=== PATIENT | female | born 1940 | race Caucasian/White ===

== ENCOUNTER 2016-10-29 08:00 | Day surgery (SDC) | payer MEDICARE ==
[~2016-10-29 08:00] MED LIST: RINGERS SOLUTION,LACTATED 1,000 ML IV PRN
--- OUTSIDE RECORDS SUMMARY | 2016-10-29 08:05 | XMS REPORT | Continuity of Care Document ---
:1940 Author Organization [facility] [place] [address] Care Team Providers Name Role Phone Francois Webb Primary Care Provider [phone] Source Comments This disclosure is being made pursuant to the [employer] program and maynot contain all information available regarding this patient.[facility] Active Allergies and Adverse Reactions Allergen Noted Date Severity Reactions Comments Sulfa Antibiotics 12/07/2014 High Anaphylaxis Tigan 12/07/2014 Other (See Comments) "almost " Current Medications Be aware that medications may not be up to date as of this document. Alwaysverify current medications with the patient. Prescription Sig. Disp. Refills Start Date End Date Status traMADol (ULTRAM) 50 MG Take 50-100 mg by Active tablet mouth every 6 (six) hours as needed for Pain. Max 4 per day tapentadol HCl (NUCYNTA) Take 50-100 mg by Active 50 MG tablet mouth every 6 (six) hours as needed for Pain. Max 600 mg per day prochlorperazine Place 25 mg Active (COMPAZINE) 25 MG rectally every 12 suppository (twelve) hours as needed for Nausea. gemfibrozil (LOPID) 600 MG Take 600 mg by Active tablet mouth 2 (two) times daily before meals. pregabalin (LYRICA) 75 MG Take 75 mg by Active capsule mouth 2 (two) times daily. fluoxetine (PROZAC) 40 MG Take 40 mg by Active capsule mouth 2 (two) times daily. ALPRAZolam (XANAX) 0.25 MG Take 0.25 mg by Active tablet mouth daily. cloNIDine (CATAPRES) 0.1 Take 0.1 mg by Active MG tablet mouth daily. HYDROcodone-acetaminophen Take 1 tablet by Active (NORCO) 5-325 MG per mouth every 6 tablet (six) hours as needed for Pain. enalapril-hydrochlorothiaz Take 1 tablet by Active rhonda (VASERETIC) 10-25 MG mouth 2 (two) per tablet times daily. aspirin 325 MG tablet Take 325 mg by Active mouth daily. Calcium 500 MG CHEW Chew 1 tablet by Active mouth daily. Multiple Vitamins-Minerals Take 1 tablet by Active (ONE-A-DAY 50 PLUS PO) mouth daily. albuterol (PROVENTIL Inhale 2 puffs 1 each 0 12/08/2014 Active HFA;VENTOLIN HFA) 108 (90 into the lungs BASE) MCG/ACT inhaler every 6 (six) hours as needed for Wheezing. Active Problems Problem Noted Date HTN (hypertension) 12/07/2014 Fibromyalgia 12/07/2014 Hx-TIA (transient ischemic attack) 12/07/2014 H/O bilateral breast reduction surgery 12/07/2014 Resolved Problems Problem Noted Date Resolved Date Respiratory failure with hypoxia (HCC) 12/07/2014 12/09/2014 Hypokalemia 12/07/2014 12/09/2014 Social History Tobacco Use Types Packs/Day Years Used Date Former Smoker 0.5 5 Quit: 04/27/1966 Smokeless Tobacco: Never Used Alcohol Use Drinks/Week oz/Week Comments No Last Filed Vital Signs Vital Sign Reading Time Taken Blood Pressure 131/60 12/08/2014 7:53 AM CDT Pulse 57 12/08/2014 7:53 AM CDT Temperature 36.6 C (97.9 F) 12/08/2014 7:53 AM CDT Respiratory Rate 16 12/08/2014 7:53 AM CDT Height 1.524 m (5') 12/07/2014 10:49 PM CDT Weight 76.8 kg (169 lb 5 oz) 12/07/2014 10:49 PM CDT Body Mass Index 33.07 12/07/2014 10:49 PM CDT Oxygen Saturation 99% 12/08/2014 7:53 AM CDT Plan of Care Health Maintenance Due Date Last Done Comments Tetanus/Pertussis (1 - Tdap) 1961 Colonoscopy 1992 Mammogram 1992 Well Adult Visit 1992 Zoster Vaccine 60+ 2002 Bone Density 10/26/2007 Pneumococcal Low/Medium Risk 65+ (1 of 2 - PCV13) 10/26/2007 Influenza Immunization (#1) 2015 Results from Last 3 Months Not on file Insurance Payer Benefit Plan / Subscriber ID Type Phone Address Group [facility] [employer] [id number] [facility] [phone] [address] [id number] [place] [address] Home: [id number] [phone] [place] [id number]
[2016-10-29] MEDS ORDERED: RINGERS SOLUTION,LACTATED 1,000 ML IV ONE (08:30)
[2016-10-29] MEDS ORDERED: RINGERS SOLUTION,LACTATED 1,000 ML IV PRN (09:16)
[2016-10-29 10:13] VITALS: BP 136/64
--- NOTE | 2016-10-29 13:19 | OR ---
Operative Report - Dictated Report Narrative: OPERATIVE REPORT DATE OF OPERATION: 10/29/2016 PREOPERATIVE DIAGNOSIS: No recent dedicated colon studies. Irregular bowels. POSTOPERATIVE DIAGNOSIS: Diverticulosis OPERATION: Colonoscopy SURGEON: Gini Hampton MD ANESTHESIA: RANDY Smith CRNA INDICATIONS FOR PROCEDURE: The patient is a 75-year-old female referred by Dr. Webb. Her last colonoscopy was in 2004. She has alternating hard and loose stools FINDINGS: Diverticulosis NARRATIVE OF PROCEDURE: The patient was identified in the holding area, and prior to the administration of anesthetic, a multidisciplinary timeout was observed. With the patient in the left lateral position and after the administration of intravenous sedation, the perineum was inspected. There was no evidence of pilonidal disease or skin breakdown. The external appearance of the anus was normal. Sphincter tone was good. The flexible fiberoptic colonoscope was inserted into the rectum which was insufflated with air. The rectal mucosa and submucosal vascular pattern appeared normal, the prep was seen to be complete. The scope was advanced through a tortuous sigmoid colon, which contained numerous non-impacted noninflamed diverticular openings. The scope was advanced up the descending colon, and around the splenic flexure where the triangular haustral architecture of the transverse colon was seen. The scope was advanced across the transverse colon, around the hepatic flexure to the cecum, where the confluence of tenia and the ileocecal valve were identified. The mucosa at this level appeared normal. The scope was then slowly withdrawn in a circular fashion so that all aspects of colonic mucosa were inspected. The colon was normal in course and caliber. The haustral architecture appeared well preserved throughout with no evidence of external compression. The mucosa and submucosal vascular pattern appeared normal, specifically there was no gross evidence to suggest colitis or inflammatory bowel disease and no AV malformations were seen. The diverticulosis was moderate in degree and confined primarily to the sigmoid colon. No polyps were encountered. The scope was gradually withdrawn to the level of the rectum. As much insufflated air as possible was removed. The scope was withdrawn from the patient and the procedure terminated. The patient tolerated the anesthetic and procedure well without complication and was transferred back to the ambulatory surgery area awake and in stable condition. The patient remained stable throughout a period of postoperative observation. She denied abdominal discomfort, was able to tolerate by mouth intake, and was up without assistance. I shared the operative findings with the patient and she was given copies of the photographs which appear in the medical record. She was discharged home with instructions not to engage in hazardous activity today , but may resume normal activity tomorrow, and advance diet as tolerated. She is to continue those medications as listed in the history and physical exam. A pamphlet on diverticular disease was reviewed with her and given to her. A trial of Benefiber or equivalent was suggested. RECOMMENDATION: Colon surveillance in 10 years depending upon symptoms or findings. Reviewed and electronically signed
== END 2016-10-29 08:01 | disposition home or self-care (01) ==
LOC: AMB 08:00
PROVIDERS: ATTEND Surgery
PROC: 0DJD8ZZ Inspection of Lower Intestinal Tract, Via Natural or Artificial Opening Endoscopic (ICD-10-PCS; principal; 2016-10-29 08:45)
DX: Z12.11 Encounter for screening for malignant neoplasm of colon (principal); K57.30 Diverticulosis of large intestine without perforation or abscess without bleeding; I10 Essential (primary) hypertension; E78.5 Hyperlipidemia, unspecified; K21.9 Gastro-esophageal reflux disease without esophagitis; Z87.891 Personal history of nicotine dependence; Z68.34 Body mass index [BMI] 34.0-34.9, adult

== ENCOUNTER 2019-09-08 15:20 | Inpatient (IN) ==
[2019-09-08] MEDS ORDERED: MORPHINE SULFATE 2 MG/ML DISP.SYRIN IV ONE ×3 (15:40→19:28)
[2019-09-08] MEDS ORDERED: ONDANSETRON HCL/PF 2 MG/ML VIAL IV ONE ×2 (15:40→17:14)
--- NOTE | 2019-09-08 15:53 | ERNOTE ---
Abdominal HPI - Narrative Date of Service: 09/08/19 - General Chief Complaint: Abdominal Pain Time Seen by Provider: 09/08/19 15:36 Source: patient Exam Limitations: no limitations - Immun/Allergies/Home Medications Immunizatons: IMMUNIZATION HX Immunizations Up to Date Yes History of Influenza Vaccine Yes Hx Pneumococcal Vaccination Yes Allergies/Adverse Reactions: Allergies estrogens, conjugated [From Premarin] Allergy (Severe, Verified 09/08/19 15:29) Stiff neck, throat swelling Sulfa (Sulfonamide Antibiotics) Allergy (Mild, Verified 09/08/19 15:29) REDNESS, N/V trimethobenzamide [From Tigan] Adverse Reaction (Severe, Verified 09/08/19 15:29) Anaphylaxis gabapentin Adverse Reaction (Mild, Verified 09/08/19 15:29) ROTS TEETH Home Medications: HOME MEDICATIONS Gemfibrozil [Lopid] 600 mg PO BID 10/15/16 [Last Taken 12/08/17] nystatin 100,000 unit/gram topical cream 1 applic TP BID #30 g 11/23/17 [Last Taken Unknown] meloxicam 15 mg tablet 15 mg PO DAILY #30 tab 12/29/17 [Last Taken Unknown] amlodipine 5 mg tablet 5 mg PO DAILY #90 tab 03/10/18 [Last Taken 04/05/18 08:00] clonidine HCl 0.1 mg tablet See Rx Instructions .ROUTE .COMPLEX #180 tablet 11/09/18 [Last Taken Unknown] fluoxetine 40 mg capsule 40 mg PO BID PRN #180 cap 11/09/18 [Last Taken Unknown] amitriptyline 25 mg tablet 25 mg PO HS PRN #90 tab 11/11/18 [Last Taken Unknown] pseudoephedrine-guaifenesin ER 60 mg-600 mg tablet,extend release 12hr 1 tab PO BID PRN #10 tab 02/09/19 [Last Taken Unknown] buspirone 10 mg tablet 10 mg PO BID #180 tab 04/14/19 [Last Taken Unknown] alprazolam 0.25 mg tablet 0.25 mg PO ONCE PRN #30 tab 07/07/19 [Last Taken Unknown] hydrocodone 5 mg-acetaminophen 325 mg tablet 1 tab PO DAILY PRN #30 tab 08/31/19 [Last Taken Unknown] - Pain Score Pain Score #1 Pain Score: 8 Abdominal Pain Onset Location: RLQ Pain Radiation: flank - History of Present Illness Narrative: The patient is a 78 year old female who presents for RLQ pain which has been present for 2 days. There are associated symptoms of nausea, chills and fever. The patient reports pain to RLQ, 8/10. There are no alleviating factors. There are aggravating factors of activity. Previous treatments have included: Tylenol and Aleve without improvement. The past medical history includes: IBS, fibromyalgia, GERD, HTN, HLD and TIA. The social history is positive for former smoker. The patient has had no known ill contacts. Review of Systems - Review of Systems Constitutional: Present: fever, chills, fatigue EYE: Present: no symptoms reported ENT: Absent: ear pain, nasal drainage, sore throat Respiratory: Present: no symptoms reported, shortness of breath. Absent: cough Cardiology: Present: no symptoms reported. Absent: chest pain Gastrointestinal/Abdominal: Present: nausea, abdominal pain. Absent: vomiting, diarrhea Genitourinary: Present: no symptoms reported. Absent: dysuria Musculoskeletal: Present: back pain Skin: Present: no symptoms reported. Absent: rash Neurological: Present: no symptoms reported All Other Systems: All systems neg except as marked Medical History (Last Reviewed 09/08/19 @ 15:43 by REMY Jean) Chronic pain syndrome (Chronic) TIA (transient ischemic attack) Fibromyalgia Onset Date: Unknown GERD (gastroesophageal reflux disease) Onset Date: ~05/13/16 Hyperlipidemia Onset Date: Unknown Hypertension Onset Date: Unknown Inflammatory bowel disease (ulcerative colitis) Onset Date: Unknown History of ectopic Onset Date: ~1960 Skin cancer Onset Date: Unknown Nose Surgical History: Surgical History (Last Reviewed 09/08/19 @ 15:43 by REMY Jean) History of phacoemulsification of cataract of left eye with intraocular lens implantation History of salpingectomy from tubal . other tube out at time of hysterectomy H/O bilateral breast reduction surgery Onset Date: 12/05/14 H/O colonoscopy Onset Date: 10/29/16 10/02/04 Nusjohanna-internal hemorrhoids 10/29/16 Memo - diverticulitis, recheck 10 years H/O nasal septoplasty Onset Date: 08/10/03 Estrellita History of cholecystectomy Onset Date: Unknown Dr. Flores - open History of esophagogastroduodenoscopy (EGD) Onset Date: 10/02/04 10/02/04 Jorge-mild gastritis History of hysterectomy Onset Date: ~1965 Dr. Sherita DOMINGUEZ History of tonsillectomy Onset Date: ~1976 S/P epidural steroid injection Onset Date: 02/06/06 01/30/06 02/06/06 L2-3, L3-4 S/P rotator cuff repair Onset Date: 05/27/07 Sohail- right Status post biopsy of thyroid gland Onset Date: ~2017 Henrich-benign Family History: Family History (Last Reviewed 09/08/19 @ 15:43 by REMY Jean) Father , age 55-stomach ca Stomach cancer Mother , age 77-lung ca History of stroke Hypertension Arthritis Diverticulosis Lung cancer Sister , age 64-lung ca History of stroke Hypertension Lung cancer Social History: (Last Reviewed 09/08/19 @ 15:43 by REMY Jean) Social History: adopted: No detention: No Marital status: lives independently: No current occupational status: retired Highest education level completed: high school graduate Service: No Tobacco: Smoking Status: Former smoker Alcohol: alcohol intake: former Substance Use: substance use type: does not use Dietary Habits: caffeine: Yes Type: carbonated beverages Physical Exam - Physical Exam General Appearance: Present: wd/wn, alert, moderate distress Head Exam: Present: normal inspection Eye Exam: Normal inspection: bilateral Neck: Present: normal inspection Respiratory: Present: no respiratory distress, normal breath sounds, no accessory muscle use, lungs clear Cardiovascular/Chest: Present: regular rate, rhythm, no murmur Gastrointestinal/Abdominal: Present: nondistended, soft, no organomegaly, tenderness - RLQ, suprapubic, periumbilical, LLQ, RUQ, abnormal bowel sounds - hypoactive, guarding - RLQ, low abdomen, rebound, McBurney sign, Obturator sign, other - Rosvings positive. Absent: mass Back Exam: Present: CVA tenderness (R). Absent: CVA tenderness (L) Neurological Exam: Present: alert, oriented, normal mood/affect, no motor/sensory deficits Skin Exam: Present: normal color, warm/dry Progress - Date and Time Seen: Date and Time: 09/08/19 16:55 Due to elevation of WBC of 14 as well as CRP 14 concerning for infection along with clinical exam findings of RLQ pain. Air fluid levels present on xray located in RLQ. Will proceed with CT imaging to rule out infection vs appendicitis. Patient states pain tolerable at this time, 08/04. 09/08/19 19:24 CT results available, consult with . 09/08/19 19:37 Will present to complete surgical intervention for patient. - Results and Orders Patient's Lab Results:: I have reviewed the patient's lab results. - Vital Signs Patient's Vital Signs:: I have reviewed the patient's vital signs. Vital Signs: Vital Signs 09/08/19 15:24 Temperature 37.5 C Pulse Rate 93 Respiratory Rate 18 Blood Pressure 168/90 H O2 Sat by Pulse Oximetry 94 - X-Ray X-Ray #1 X-Ray: abdomen Interpretation: Reviewed by me X-ray Comments: IMPRESSION: 1. NONSPECIFIC BOWEL GAS PATTERN Electronically signed by John Hernandez M.D.. - CT/Ultrasound CT/Ultrasound Narrative: IMPRESSION: 1. FINDINGS CONSISTENT WITH ACUTE APPENDICITIS WITH ADJACENT INFLAMMATION BUT NO DEFINABLE FLUID COLLECTION/ABSCESS. SURGICAL CONSULTATION RECOMMENDED. 2. MILD FATTY INFILTRATION WITHIN THE LIVER. 3. CYST PROJECTING OFF THE LOWER POLE OF THE RIGHT KIDNEY. 4. STATUS POST HYSTERECTOMY. Electronically signed by John Hernandez M.D.. - Progress/Reassessment Chief Complaint: Abdominal Pain Progress:: Improved Departure Clinical Impression: Acute appendicitis Qualifiers: Acute appendicitis type: with localized peritonitis Appendicitis gangrene presence: unspecified whether gangrene present Appendicitis perforation presence: unspecified whether perforation present Appendicitis abscess presence: unspecified whether abscess present Qualified Code(s): K35.30 - Acute appendicitis with localized peritonitis, without perforation or gangrene - Departure Disposition: Still a patient Condition: Stable
[2019-09-08 15:56] LABS: Hematocrit 39.9 % (37.0-47.0); Hemoglobin 13.4 gm/dL (12.5-16.0); Mean Cell Volume 88.5 fl (78-100); Mean Corpuscular Hemoglobin 29.7 pg (27-31); Mean Corpuscular Hgb Conc 33.6 g/dl (32-36); Neutrophil # 10.3 K/mm3 (1.3-6.0); Neutrophil % 72.9 % (42-75.0); Platelet Count 292 K/mm3 (150-450); Red Blood Count 4.51 M/mm3 (4.2-5.4); Red Cell Distribution Width 13.1 % (11.5-14.0); White Blood Count 14.1 K/mm3 (4.0-10.5)
[2019-09-08 16:08] LABS: Urine Bilirubin 1 mg/dl (NEGATIVE); Urine Blood Negative /ul (NEGATIVE); Urine Ketone Negative (NEGATIVE); Urine Nitrite Negative (NEGATIVE); Urine Protein 15 mg/dL (NEGATIVE); Urine Urobilinogen Normal (NORMAL)
[2019-09-08 16:28] LABS: Urine Appearance Clear (CLEAR); Urine Color Dark Yellow
[2019-09-08 16:29] LABS: Urine Bacteria 1+; Urine RBC TRACE /hpf (0-5)
[2019-09-08 16:39] LABS: Albumin * 3.5 gm/dl (3.4-5.0); Anion Gap 17.2 mmol/L (6.8-13.8); BUN/Creatinine Ratio 15.6 (9.0-21.6); Bilirubin, Total 0.9 mg/dL (0.0-1.1); Ca. Corrected For Albumin 8.6 mg/dL (8.4-10.2); Calcium * 8.5 mg/dL (7.9-10.9); Carbon Dioxide 22.5 mmol/L (24-32.6); Potassium 3.7 mmol/L (3.4-4.6); Total Protein 7.1 gm/dL (6.2-8.2)
[2019-09-08 16:49] LABS: CRP 14.1 mg/dL (0.0-0.9)
[2019-09-08] MEDS ORDERED: DIATRIZOATE MEGLUMINE, SODIUM 30 ML BTL PO ONE (16:50)
[2019-09-08] MEDS ORDERED: NORMAL SALINE 500 ML IV ONE (17:15)
[2019-09-08] MEDS ORDERED: MUPIROCIN 22 APPL TUBE TP ONE ×2 (19:53→22:30)
[2019-09-08] MEDS ORDERED: ISOPROPYL ALCOHOL 480 APPL BTL MC ONE (19:53)
[2019-09-08] MEDS ORDERED: BUPIVACAINE HCL/EPINEPHRINE/PF 30 ML VIAL IJ ONE ×2 (19:53→21:33)
--- NOTE | 2019-09-08 20:16 | HP ---
Chief Complaint - Chief Complaint Date of Service: 09/08/19 Time of Service: 20:08 Chief Complaint: abdominal pain History of Present Illness: Actually has had some abdominal discomfort for last couple days but got much worse and localized to right side today. WBC elevated and CT scan shows acute appendicitis. Medical History (Last Reviewed 09/08/19 @ 20:10 by Gini Hampton MD) Chronic pain syndrome (Chronic) TIA (transient ischemic attack) Fibromyalgia Onset Date: Unknown GERD (gastroesophageal reflux disease) Onset Date: ~05/13/16 Hyperlipidemia Onset Date: Unknown Hypertension Onset Date: Unknown Inflammatory bowel disease (ulcerative colitis) Onset Date: Unknown History of ectopic Onset Date: ~1960 Skin cancer Onset Date: Unknown Nose Surgical History: Surgical History (Last Reviewed 09/08/19 @ 20:10 by Gini Hampton MD) History of phacoemulsification of cataract of left eye with intraocular lens implantation History of salpingectomy from tubal . other tube out at time of hysterectomy H/O bilateral breast reduction surgery Onset Date: 12/05/14 H/O colonoscopy Onset Date: 10/29/16 10/02/04 Jorge-internal hemorrhoids 10/29/16 Memo - diverticulitis, recheck 10 years H/O nasal septoplasty Onset Date: 08/10/03 Estrellita History of cholecystectomy Onset Date: Unknown Dr. Flores - open History of esophagogastroduodenoscopy (EGD) Onset Date: 10/02/04 10/02/04 Jorge-mild gastritis History of hysterectomy Onset Date: ~1965 Dr. Sherita Santiago [facility] History of tonsillectomy Onset Date: ~1976 S/P epidural steroid injection Onset Date: 02/06/06 01/30/06 02/06/06 L2-3, L3-4 S/P rotator cuff repair Onset Date: 05/27/07 Sohail- right Status post biopsy of thyroid gland Onset Date: ~2017 Estrellita-benign Family History: Family History (Last Reviewed 09/08/19 @ 20:10 by Gini Hampton MD) Father , age 55-stomach ca Stomach cancer Mother , age 77-lung ca Lung cancer Diverticulosis Arthritis Hypertension History of stroke Sister , age 64-lung ca Lung cancer Hypertension History of stroke Social History: (Last Reviewed 09/08/19 @ 20:10 by Gini Hampton MD) Social History: adopted: No mcc: No Marital status: lives independently: No current occupational status: retired Highest education level completed: high school graduate Service: No Tobacco: Smoking Status: Former smoker Alcohol: alcohol intake: former Substance Use: substance use type: does not use Dietary Habits: caffeine: Yes Type: carbonated beverages Review Of Systems (GEN) - Review of Systems Generalized/Overall Review: Absent: Chills, Fever EENTM: Present: No Symptoms Reported Respiratory: Present: No Symptoms Reported. Absent: Cough, Shortness of Breath Cardiac: Present: No Symptoms Reported. Absent: Chest Pain, Edema, Palpitations Abdominal: Present: Abdominal Pain Genitourinary: Present: No Symptoms Reported, Nocturia - x 2 Musculoskeletal: Present: Other - multiple chronic arthritic joints, fibromyalgia Neurological: Present: No Symptoms Reported, Other - no TIA symptoms Skin: Present: No Symptoms Reported Endocrine: Present: No Symptoms Reported Immunizations: IMMUNIZATION HX Immunizations Up to Date Yes History of Influenza Vaccine Yes Hx Pneumococcal Vaccination Yes Allergies/Adverse Reactions: Allergies Allergy/AdvReac Type Severity Reaction Status Date / Time estrogens, conjugated Allergy Severe Stiff Verified 09/08/19 15:29 [From Premarin] neck, throat swelling Sulfa (Sulfonamide Allergy Mild REDNESS, Verified 09/08/19 15:29 Antibiotics) N/V trimethobenzamide AdvReac Severe Anaphylaxis Verified 09/08/19 15:29 [From Tigan] gabapentin AdvReac Mild ROTS TEETH Verified 09/08/19 15:29 Home Medications: HOME MEDICATIONS Gemfibrozil [Lopid] 600 mg PO BID 10/15/16 [Last Taken 12/08/17] nystatin 100,000 unit/gram topical cream 1 applic TP BID #30 g 11/23/17 [Last Taken Unknown] meloxicam 15 mg tablet 15 mg PO DAILY #30 tab 12/29/17 [Last Taken Unknown] amlodipine 5 mg tablet 5 mg PO DAILY #90 tab 03/10/18 [Last Taken 04/05/18 08:00] clonidine HCl 0.1 mg tablet See Rx Instructions .ROUTE .COMPLEX #180 tablet 11/09/18 [Last Taken Unknown] fluoxetine 40 mg capsule 40 mg PO BID PRN #180 cap 11/09/18 [Last Taken Unknown] amitriptyline 25 mg tablet 25 mg PO HS PRN #90 tab 11/11/18 [Last Taken Unknown] pseudoephedrine-guaifenesin ER 60 mg-600 mg tablet,extend release 12hr 1 tab PO BID PRN #10 tab 02/09/19 [Last Taken Unknown] buspirone 10 mg tablet 10 mg PO BID #180 tab 04/14/19 [Last Taken Unknown] alprazolam 0.25 mg tablet 0.25 mg PO ONCE PRN #30 tab 07/07/19 [Last Taken Unknown] hydrocodone 5 mg-acetaminophen 325 mg tablet 1 tab PO DAILY PRN #30 tab 08/31/19 [Last Taken Unknown] Exam - Exam Vital Signs: Vital Signs - Last Taken Temp 37.5 C 09/08/19 19:56 Pulse 89 09/08/19 19:56 Resp 16 09/08/19 19:56 BP 103/46 09/08/19 19:56 Pulse Ox 91 L 09/08/19 19:56 Constitutional: Present: Alert, Oriented x3, Cooperative, Well developed, Well nourished, Obese ENT Exam: Present: normal ENT inspection, hearing grossly normal Eye Exam: bilateral eye: normal inspection Neck: Present: full range of motion, normal inspection Breasts: Present: Exam deferred Respiratory: Present: lungs clear, no respiratory distress Cardiovascular/Chest: Present: normal peripheral pulses, regular rate, rhythm, no murmur. Absent: edema Abdomen: Present: tender, rebound tenderness - RLQ /Rectal: Present: Exam deferred Extremity: Present: normal range of motion, normal inspection. Absent: lower extremity edema Skin Exam: Present: normal color Neurologic: Present: head mixer II-XII nml as tested, normal cerebellar test, alert, normal mood/affect, oriented x 3 Appearance: Present: appropriate appearance, appropriate insight Eye contact: Present: cooperative, good eye contact, normal speech Thoughts: Present: normal thought pattern Diagnostic Studies: Abnormal Lab Results 09/08/19 09/08/19 09/08/19 Range/Units 15:50 15:50 15:55 WBC 14.1 H (4.0-10.5) K/mm3 Immature Gran % (Auto) 0.50 H (0.001-0.429) % Immature Gran # (Auto) 0.07 H (0.000-0.0310) K/mm3 Lymphocytes % 17.0 L (20-51) % Neutrophils # 10.3 H (1.3-6.0) K/mm3 Monocytes # 1.2 H (0.0-1.0) k/mm3 Carbon Dioxide 22.5 L (24-32.6) mmol/L Anion Gap 17.2 H (6.8-13.8) mmol/L Random Glucose 118 H (70-110) mg/dL C-Reactive Prot, Quant 14.1 H (0.0-0.9) mg/dL Lipase 65 L (73-393) U/L Urine Protein 15 H (NEGATIVE) mg/dL Urine Bilirubin 1 H (NEGATIVE) mg/dl Ur Leukocyte Esterase 25 H (NEGATIVE) /ul Urine WBC 5-10 H (0-5) /hpf Ur Epithelial Cells 5-10 H (0-5) /hpf Urine Bacteria 1+ H (NONE) Laboratory Results WBC 14.1 K/mm3 (4.0-10.5) H 09/08/19 15:50 RBC 4.51 M/mm3 (4.2-5.4) 09/08/19 15:50 Hgb 13.4 gm/dL (12.5-16.0) 09/08/19 15:50 Hct 39.9 % (37.0-47.0) 09/08/19 15:50 MCV 88.5 fl (78-100) 09/08/19 15:50 MCH 29.7 pg (27-31) 09/08/19 15:50 MCHC 33.6 g/dl (32-36) 09/08/19 15:50 RDW 13.1 % (11.5-14.0) 09/08/19 15:50 Plt Count 292 K/mm3 (150-450) 09/08/19 15:50 MPV 9.0 fl (8-12.5) 09/08/19 15:50 Immature Gran % (Auto) 0.50 % (0.001-0.429) H 09/08/19 15:50 Immature Gran # (Auto) 0.07 K/mm3 (0.000-0.0310) H 09/08/19 15:50 Neutrophils % 72.9 % (42-75.0) 09/08/19 15:50 Lymphocytes % 17.0 % (20-51) L 09/08/19 15:50 Monocytes % 8.7 % (0.0-9) 09/08/19 15:50 Eosinophils % 0.6 % (0.0-3.0) 09/08/19 15:50 Basophils % 0.3 % (0.0-1.0) 09/08/19 15:50 Nucleated RBC % 0.0 k/mm3 (0-1) 09/08/19 15:50 Neutrophils # 10.3 K/mm3 (1.3-6.0) H 09/08/19 15:50 Lymphocytes # 2.40 k/mm3 (1.5-3.5) 09/08/19 15:50 Monocytes # 1.2 k/mm3 (0.0-1.0) H 09/08/19 15:50 Eosinophils # 0.1 k/mm3 (0.0-0.7) 09/08/19 15:50 Absolute Basophils 0.0 k/mm3 (0.0-0.1) 09/08/19 15:50 Sodium 137 mmol/L (132-142) 09/08/19 15:50 Plasma Sodium 137 mmol/L (130-142) 09/08/19 15:50 Potassium 3.7 mmol/L (3.4-4.6) 09/08/19 15:50 Chloride 101 mmol/L (97-106) 09/08/19 15:50 Carbon Dioxide 22.5 mmol/L (24-32.6) L 09/08/19 15:50 Anion Gap 17.2 mmol/L (6.8-13.8) H 09/08/19 15:50 BUN 14 mg/dL (3-23) 09/08/19 15:50 Creatinine 0.90 mg/dL (0.4-1.4) 09/08/19 15:50 Est GFR (Non-Af Amer) 65 mL/min (60-130) 09/08/19 15:50 BUN/Creatinine Ratio 15.6 (9.0-21.6) 09/08/19 15:50 Random Glucose 118 mg/dL (70-110) H 09/08/19 15:50 Calcium 8.5 mg/dL (7.9-10.9) 09/08/19 15:50 Calcium Adj for Albumin 8.6 mg/dL (8.4-10.2) 09/08/19 15:50 Total Bilirubin 0.9 mg/dL (0.0-1.1) 09/08/19 15:50 AST 19 U/L (0-48) 09/08/19 15:50 ALT 19 U/L (19-67) 09/08/19 15:50 Alkaline Phosphatase 77 U/L (50-170) 09/08/19 15:50 C-Reactive Prot, Quant 14.1 mg/dL (0.0-0.9) H 09/08/19 15:50 Total Protein 7.1 gm/dL (6.2-8.2) 09/08/19 15:50 Albumin 3.5 gm/dl (3.4-5.0) 09/08/19 15:50 Amylase 42 U/L (25-115) 09/08/19 15:50 Lipase 65 U/L (73-393) L 09/08/19 15:50 Urine Color Dark yellow 09/08/19 15:55 Urine Appearance Clear (CLEAR) 09/08/19 15:55 Urine pH 6.0 pH (5.0-7.0) 09/08/19 15:55 Ur Specific Munday 1.020 SP.GR. (1.005-1.010) 09/08/19 15:55 Urine Protein 15 mg/dL (NEGATIVE) H 09/08/19 15:55 Urine Glucose (UA) Negative mg/dL (NEGATIVE) 09/08/19 15:55 Urine Ketones Negative mg/dL (NEGATIVE) 09/08/19 15:55 Urine Blood Negative /ul (NEGATIVE) 09/08/19 15:55 Urine Nitrate Negative (NEGATIVE) 09/08/19 15:55 Urine Bilirubin 1 mg/dl (NEGATIVE) H 09/08/19 15:55 Urine Ictotest Negative (NEGATIVE) 09/08/19 15:55 Prot Sulfosalicylic Acd 1+ mg/dL (0) 09/08/19 15:55 Urine Urobilinogen Normal EU/dl (NORMAL) 09/08/19 15:55 Ur Leukocyte Esterase 25 /ul (NEGATIVE) H 09/08/19 15:55 Urine RBC Trace /hpf (0-5) 09/08/19 15:55 Urine WBC 5-10 /hpf (0-5) H 09/08/19 15:55 Ur Epithelial Cells 5-10 /hpf (0-5) H 09/08/19 15:55 Urine Bacteria 1+ (NONE) H 09/08/19 15:55 Urine Culture Comments Culture to follow 09/08/19 15:55 CT shows enlarged and inflamed appendix Assessment/Plan - Assessment/Plan (1) Acute appendicitis Assessment: Explained appendicitis and its treatment. Risks and possible complications of appendectomy (laparoscopic or open) explained as well as the expected post-op course. After an interactive discussion, her questions were answered to her apparent satisfaction and she has given informed consent for appendectomy. Chlorhexidine wipes, IV Mefoxin, SCD's Problem: Acute Qualifiers: Acute appendicitis type: with localized peritonitis Appendicitis gangrene presence: unspecified whether gangrene present Appendicitis perforation presence: unspecified whether perforation present Appendicitis abscess presence: unspecified whether abscess present Qualified Code(s): K35.30 - Acute appendicitis with localized peritonitis, without perforation or gangrene
--- NOTE | 2019-09-08 20:16 | ANES ---
Anesthesia Pre Procedure Eval Vitals/Labs: Last Vital Signs Temp 37.5 C 09/08/19 19:56 Pulse 89 09/08/19 19:56 Resp 16 09/08/19 19:56 BP 103/46 09/08/19 19:56 Pulse Ox 91 L 09/08/19 19:56 HOME MEDICATIONS Gemfibrozil [Lopid] 600 mg PO BID 10/15/16 [Last Taken 12/08/17] nystatin 100,000 unit/gram topical cream 1 applic TP BID #30 g 11/23/17 [Last Taken Unknown] meloxicam 15 mg tablet 15 mg PO DAILY #30 tab 12/29/17 [Last Taken Unknown] amlodipine 5 mg tablet 5 mg PO DAILY #90 tab 03/10/18 [Last Taken 04/05/18 08:00] clonidine HCl 0.1 mg tablet See Rx Instructions .ROUTE .COMPLEX #180 tablet 11/09/18 [Last Taken Unknown] fluoxetine 40 mg capsule 40 mg PO BID PRN #180 cap 11/09/18 [Last Taken Unknown] amitriptyline 25 mg tablet 25 mg PO HS PRN #90 tab 11/11/18 [Last Taken Unknown] pseudoephedrine-guaifenesin ER 60 mg-600 mg tablet,extend release 12hr 1 tab PO BID PRN #10 tab 02/09/19 [Last Taken Unknown] buspirone 10 mg tablet 10 mg PO BID #180 tab 04/14/19 [Last Taken Unknown] alprazolam 0.25 mg tablet 0.25 mg PO ONCE PRN #30 tab 07/07/19 [Last Taken Unknown] hydrocodone 5 mg-acetaminophen 325 mg tablet 1 tab PO DAILY PRN #30 tab 08/31/19 [Last Taken Unknown] Allergies/Adverse Reactions: Allergies Allergy/AdvReac Type Severity Reaction Status Date / Time estrogens, conjugated Allergy Severe Stiff Verified 09/08/19 15:29 [From Premarin] neck, throat swelling Sulfa (Sulfonamide Allergy Mild REDNESS, Verified 09/08/19 15:29 Antibiotics) N/V trimethobenzamide AdvReac Severe Anaphylaxis Verified 09/08/19 15:29 [From Tigan] gabapentin AdvReac Mild ROTS TEETH Verified 09/08/19 15:29 - Planned Procedure Planned Procedure: Lap Appy Medication List Reviewed:: Yes Allergies Verified: Yes Medical History (Last Reviewed 09/08/19 @ 20:15 by Vel Smith CRNA) Chronic pain syndrome (Chronic) TIA (transient ischemic attack) Fibromyalgia Onset Date: Unknown GERD (gastroesophageal reflux disease) Onset Date: ~05/13/16 Hyperlipidemia Onset Date: Unknown Hypertension Onset Date: Unknown Inflammatory bowel disease (ulcerative colitis) Onset Date: Unknown History of ectopic Onset Date: ~1960 Skin cancer Onset Date: Unknown Nose Surgical History (Last Reviewed 09/08/19 @ 20:15 by Vel Smith CRNA) History of phacoemulsification of cataract of left eye with intraocular lens implantation History of salpingectomy from tubal . other tube out at time of hysterectomy H/O bilateral breast reduction surgery Onset Date: 12/05/14 H/O colonoscopy Onset Date: 10/29/16 10/02/04 Jorge-internal hemorrhoids 10/29/16 Memo - diverticulitis, recheck 10 years H/O nasal septoplasty Onset Date: 08/10/03 Estrellita History of cholecystectomy Onset Date: Unknown Dr. Flores - open History of esophagogastroduodenoscopy (EGD) Onset Date: 10/02/04 10/02/04 Jorge-mild gastritis History of hysterectomy Onset Date: ~1965 Dr. Sherita MAN[facility] History of tonsillectomy Onset Date: ~1976 S/P epidural steroid injection Onset Date: 02/06/06 01/30/06 02/06/06 L2-3, L3-4 S/P rotator cuff repair Onset Date: 05/27/07 Sohail- right Status post biopsy of thyroid gland Onset Date: ~2017 Estrellita-benign Family History (Last Reviewed 09/08/19 @ 20:15 by Vel Smith CRNA) Father , age 55-stomach ca Stomach cancer Mother , age 77-lung ca Lung cancer Diverticulosis Arthritis Hypertension History of stroke Sister , age 64-lung ca Lung cancer Hypertension History of stroke - Family Anesthesia History Family History:: no untoward family reactions to anesthesia, no familial bleeding tendencies, no family history of clotting disorders, no family history of premature - Airway/Neck/Teeth Within Normal Limits:: Yes Denture Type: Full upper Mallampatti Score: 3 Thyromental (T-M) distance: > 6 cm Mandibulo Hyoid distance: > 3 cm - Respiratory Respiratory Physical: lungs clear Discussed smoking cessation including day of surgery: No Sleep Apnea currently treated: No Sleep Apnea by current assessment: Yes Discussed Risks/Treatment of JOSE EDUARDO: Yes - Cardiovascular Tolerate Activity: Fair Heart Sounds: S1 & S2, Regular - Gastrointestinal NPO since: 1829 - Anesthesia Assessment and Plan ASA Class: PS, III, E Anesthesia Type Plan: General ET
[2019-09-08] MEDS ORDERED: CEFOXITIN SODIUM 2 GM in DEXTROSE 5 % IN WATER 100 ML IV ONE ×2 (20:17)
[2019-09-08] MEDS ORDERED: LIDOCAINE HCL 20 ML VIAL ONE (20:19)
[2019-09-08] MEDS ORDERED: PROPOFOL VIAL IV ONE (20:20)
[2019-09-08] MEDS ORDERED: ONDANSETRON HCL/PF 2 MG/ML VIAL ONE (20:20)
[2019-09-08] MEDS ORDERED: GLYCOPYRROLATE 0.2 MG/ML VIAL ONE (20:20)
[2019-09-08] MEDS ORDERED: NEOSTIGMINE METHYLSULFATE 1 MG/ML VIAL ONE (20:20)
[2019-09-08] MEDS ORDERED: DEXAMETHASONE SODIUM PHOSPHATE 10 MG/ML VIAL ONE (20:20)
[2019-09-08] MEDS ORDERED: SUCCINYLCHOLINE CHLORIDE 20 MG/ML VIAL ONE (20:20)
[2019-09-08] MEDS ORDERED: fentaNYL CITRATE/PF 50 MCG/ML AMPUL ONE (20:20)
[2019-09-08] MEDS ORDERED: ROCURONIUM BROMIDE 10 MG/ML VIAL ONE (20:20)
[2019-09-08] MEDS: RINGER'S SOLUTION,LACTATED 1,000 ML IV ONE ×2 (20:35→21:50)
[2019-09-08] MEDS ORDERED: BUPIVACAINE HCL/PF 30 ML VIAL IJ ONE (21:00)
[2019-09-08] MEDS ORDERED: ONDANSETRON HCL/PF 2 MG/ML VIAL IV PRN (22:50)
[2019-09-08] MEDS ORDERED: FLUOXETINE HCL 40 MG PO PRN (22:54)
--- NOTE | 2019-09-08 22:57 | ANES ---
Post Anesthesia Assessment - Vital Signs Vitals: Last Vital Signs Temp 37.8 C 09/08/19 22:45 Pulse 95 09/08/19 22:50 Resp 14 09/08/19 22:50 BP 166/64 H 09/08/19 22:50 Pulse Ox 96 09/08/19 22:50 Airway Patency: Normal - Mental Status Level Of Consciousness: Awake - Pain Level Pain Score: 0 - N/V Assessment Nausea/Vomiting Presence: None Dehydration:: No
--- NOTE | 2019-09-08 22:57 | ANES ---
Post Anesthesia Discharge - Transfer of Care Transfer of Care handoff given to nurse: Yes - Discharge from PACU Discharge from PACU when meets criteria: Yes - Discharge to ASU Discharge to ASU-no complications/pt stable: Yes
[2019-09-08] MEDS ORDERED: HYDROmorphone HCL 2 MG/ML VIAL ONE (23:05)
[2019-09-08] MEDS: HYDROmorphone HCL 1 MG/ML DISP.SYRIN IV PRN (23:06)
[2019-09-08] MEDS ORDERED: HYDROmorphone HCL 1 MG/ML DISP.SYRIN IV ONE (23:16)
[2019-09-09] MEDS: CLONIDINE HCL 0.1 MG TABLET PO SCH ×3 (00:15→20:06)
[2019-09-09] MEDS: RINGER'S SOLUTION,LACTATED 1,000 ML IV PRN ×3 (00:16→16:32)
[2019-09-09] MEDS: ENOXAPARIN SODIUM 40 MG/0.4 ML SYRG SC SCH (02:47)
[2019-09-09] MEDS: CEFOXITIN SODIUM 1 GM in DEXTROSE 5 % IN WATER 100 ML IV SCH ×6 (02:47→14:31)
[2019-09-09] MEDS: HYDROcodone/ACETAMINOPHEN 1 EACH TABLET PO PRN ×3 (03:03→16:32)
[2019-09-09] MEDS: HYDROmorphone HCL 1 MG/ML DISP.SYRIN IV PRN ×6 (04:38→20:47)
[2019-09-09] MEDS ORDERED: FLUoxetine HCL 20 MG CAPSULE PO PRN (07:30)
[2019-09-09] MEDS: busPIRone HCL 5 MG TABLET PO SCH ×2 (08:16→20:07)
[2019-09-09] MEDS: amLODIPine BESYLATE 5 MG TABLET PO SCH (08:17)
--- NOTE | 2019-09-09 09:59 | OR ---
Operative Report - Dictated Report Narrative: OPERATIVE REPORT DATE OF OPERATION: 09/08/2019 PREOPERATIVE DIAGNOSIS: Acute appendicitis POSTOPERATIVE DIAGNOSIS: Advanced acute appendicitis without perforation with extensive intra-abdominal adhesions OPERATION: Attempted laparoscopic converted to open appendectomy SURGEON: Gini Hampton MD ANESTHESIA: General endotracheal Vel Smith CRNA INDICATIONS FOR PROCEDURE: The patient is a 78-year-old female who presented to the emergency room with a several day history of abdominal discomfort which has settled in the right lower quadrant. She was found to have an elevated white blood cell count, direct and rebound tenderness, and CT scan evidence of acute appendicitis FINDINGS: Extensive adhesions from her previous pelvic surgery precluding laparoscopic visualization. Marked acute appendicitis without perforation. NARRATIVE OF PROCEDURE: The patient was identified preoperatively and prior to the administration of anesthetic a multidisciplinary timeout was observed. The patient was placed supine, SCDs applied, and 2 g of intravenous Mefoxin administered. Rapid sequence endotracheal intubation was performed and general anesthetic administered. The patient's abdomen was prepped with Betadine solution and a generous operating field outlined with 4 sterile towels. The remainder the patient was covered with a sterile disposable drape. A transverse infraumbilical skin incision was made. Dissection was carried along the umbilical stalk until the midline fascia of was identified. This was incised. The peritoneum was then elevated and incised to allow entry into the abdominal cavity under direct vision. A forefinger was inserted and the undersurface of the anterior abdominal wall digitally explored. There were omental adhesions to the low midline however these could be bluntly lysed sufficient for introduction of a Moon cannula. The abdomen was insufflated with CO2. The laparoscopic camera was introduced. Although there was a space between the omentum and the anterior abdominal wall, this could not be extended by insufflation sufficient for visualization. The Moon cannula was removed and again using a forefinger the space was bluntly enlarged. The camera was again reinserted however there was insufficient visualization to proceed laparoscopically. Accordingly, after receiving a correct sponge needle and instrument count the umbilical incision was closed. The fascia and peritoneum were approximated with interrupted sutures of 0 Vicryl. Subcutaneous space was obliterated with 2-0 chromic, and the skin was approximated with interrupted vertical mattress sutures of 4-0 nylon. Attention was then turned to the right lower quadrant. A 4 fingerbreadth transverse incision was made over McBurney's point. Dissection was carried through subcutaneous tissue with electrocautery until the fascia of the anterior rectus sheath was encountered. This was incised. The rectus muscle was retracted medially. The inferior epigastric vessels were clamped and secured with 0 chromic ties. The posterior rectus sheath/peritoneum was then incised to allow entry into the abdominal cavity under direct vision. The apex of the cecum was encountered. Digital exploration of the right lower quadrant revealed a indurated appendix which dove into the pelvis. By the use of finger fracture technique the appendix was gradually liberated and delivered into the incision. It was found to be markedly inflamed. There was no perforation or abscess formation. The base of the appendix and mesoappendix appeared amenable to application of a GLEN stapling device. The base of the appendix and mesoappendix were then divided with an endoscopic GLEN stapler. The appendix was passed on the back table and then submitted to pathology. The base of the appendix appeared gas and liquid tight. The mesoappendix was hemostatic. The local area was suctioned clean and the cecum returned to an anatomic position. After receiving a correct sponge needle instrument count attention was turned to closing the abdomen. The posterior rectus sheath/peritoneum was approximated with a running suture of #1 antibiotic-containing Vicryl. Anterior rectus sheath was then approximated with interrupted sutures of antibiotic containing 0 Vicryl. Subcutaneous tissues were irrigated and space obliterated with interrupted sutures of 2-0 chromic. The skin was secured with elieser. The operative sites were washed and dried. A dressing of Bactroban ointment folded 4 x 4 and Medipore tape was applied to the right lower quadrant incision. Bactroban ointment and Mepilex border with Medipore tape were applied to the u mbilical incision. The operative procedure was terminated at this point. The patient tolerated the anesthetic and procedure well without complication. There was no measurable blood loss. She was transferred to the recovery room awake extubated and in stable condition. Reviewed and electronically signed
--- NOTE | 2019-09-09 12:01 | PN ---
Subjective - Date and Time Seen Date: 09/09/19 Time: 11:50 - Second visit Objective Objective Narrative: POD#1 attempted laparoscopic converted to open appendectomy for advanced acute appendicitis She has continued to require IV pain medication, however was able to doze briefly this morning. She has only taken a few bites of Jell-O. She has been up once to the bathroom but has otherwise not been able to get out of bed. Her vital signs have remained normal, her blood pressure was up on one reading. She was left on oxygen overnight due to her obstructive sleep apnea and her SaO2 is 100% currently - Review of Systems Generalized/Overall Review: Reports: Weakness. Denies: Fever EENTM: Reports: No Symptoms Reported Respiratory: Denies: Cough, Shortness of Breath Cardiac: Denies: Chest Pain, Palpitations Abdominal: Reports: Other - She has incisional discomfort at rest which is much more when she moves. Dressing has remained dry Genitourinary Symptoms: Reports: No Symptoms Reported, Other - She has voided Musculoskeletal Complaints: Reports: Other - Chronic stable arthritic complaints Neurological: Reports: No Symptoms Reported, Other - No TIA-like symptoms Skin: Reports: No Symptoms Reported Endocrine: Reports: No Symptoms Reported - Vitals Vitals: Last Vital Signs Temp 36.9 C 09/09/19 11:24 Pulse 75 09/09/19 11:24 Resp 16 09/09/19 11:24 BP 140/54 09/09/19 11:24 Pulse Ox 100 09/09/19 11:24 - Abnormal Lab Findings Abnormal Lab Findings: Abnormal Lab Results 09/08/19 09/08/19 09/08/19 Range/Units 15:50 15:50 15:55 WBC 14.1 H (4.0-10.5) K/mm3 Immature Gran % (Auto) 0.50 H (0.001-0.429) % Immature Gran # (Auto) 0.07 H (0.000-0.0310) K/mm3 Lymphocytes % 17.0 L (20-51) % Neutrophils # 10.3 H (1.3-6.0) K/mm3 Monocytes # 1.2 H (0.0-1.0) k/mm3 Carbon Dioxide 22.5 L (24-32.6) mmol/L Anion Gap 17.2 H (6.8-13.8) mmol/L Random Glucose 118 H (70-110) mg/dL C-Reactive Prot, Quant 14.1 H (0.0-0.9) mg/dL Lipase 65 L (73-393) U/L Urine Protein 15 H (NEGATIVE) mg/dL Urine Bilirubin 1 H (NEGATIVE) mg/dl Ur Leukocyte Esterase 25 H (NEGATIVE) /ul Urine WBC 5-10 H (0-5) /hpf Ur Epithelial Cells 5-10 H (0-5) /hpf Urine Bacteria 1+ H (NONE) - Exam Exam Narrative: She was finally sleeping on my first visit. She is sleeping but arouses after calling her name twice on the second visit she appears comfortable laying in bed but is soon as she tries to move she winces in discomfort Constitutional: Present: Oriented x3, Elderly, Obese ENT Exam: Present: normal ENT inspection Neck: Present: full range of motion, normal inspection Breasts: Present: Exam deferred Respiratory: Present: no respiratory distress Cardiovascular/Chest: Present: regular rate, rhythm Abdomen: Present: obese, other - There is spotting from the ointment on the umbilical dressing. The right lower quadrant dressing is dry and intact. /Rectal: Present: Exam deferred Extremity: Present: normal range of motion, no pedal edema, no calf tenderness Skin Exam: Present: normal color, warm/dry Neurologic: Present: pure culture operator II-XII nml as tested, no motor/sensory deficits Appearance: Present: appropriate appearance, appropriate insight, no memory impairment Eye contact: Present: cooperative, good eye contact, normal speech Thoughts: Present: normal thought pattern Assessment/Plan Plan Narrative: She will need to be on continued antibiotics due to the advanced nature of the appendicitis. Encouraged her to take liquids. She is not ready for solid food just yet She is still requiring IV pain medication due to the nature of her incision She is to continue use her spirometer. We will try to wean her oxygen this afternoon. SCDs and Lovenox for VTE prophylaxis We will have the nurses try to ambulate her. She is certainly not independent for discharge at this point She will clearly need to stay overnight - Problems/Diagnosis (1) Acute appendicitis Problem: Acute Qualifiers: Acute appendicitis type: with localized peritonitis Appendicitis gangrene presence: unspecified whether gangrene present Appendicitis perforation presence: unspecified whether perforation present Appendicitis abscess presence: unspecified whether abscess present Qualified Code(s): K35.30 - Acute appendicitis with localized peritonitis, without perforation or gangrene (2) Obstructive sleep apnea, adult Problem: Acute Narrative: I observed her asleep this morning. She does snore very loudly and did require supplemental oxygen
[2019-09-09] MEDS ORDERED: HEPARIN SOD.,PORCINE 100 UNITS/ML IV ONE (18:15)
[2019-09-10] MEDS: HYDROcodone/ACETAMINOPHEN 1 EACH TABLET PO PRN ×2 (01:22→09:02)
[2019-09-10] MEDS: HYDROmorphone HCL 1 MG/ML DISP.SYRIN IV PRN (02:26)
[2019-09-10] MEDS: ENOXAPARIN SODIUM 40 MG/0.4 ML SYRG SC SCH (02:27)
[2019-09-10 07:22] LABS: Hematocrit 32.1 % (37.0-47.0); Hemoglobin 10.4 gm/dL (12.5-16.0); Mean Cell Volume 92.2 fl (78-100); Mean Corpuscular Hemoglobin 29.9 pg (27-31); Mean Corpuscular Hgb Conc 32.4 g/dl (32-36); Neutrophil # 6.4 K/mm3 (1.3-6.0); Neutrophil % 65.1 % (42-75.0); Platelet Count 228 K/mm3 (150-450); Red Blood Count 3.48 M/mm3 (4.2-5.4); Red Cell Distribution Width 13.4 % (11.5-14.0); White Blood Count 9.8 K/mm3 (4.0-10.5)
[2019-09-10] MEDS: amLODIPine BESYLATE 5 MG TABLET PO SCH (09:03)
[2019-09-10] MEDS: CLONIDINE HCL 0.1 MG TABLET PO SCH (09:03)
[2019-09-10] MEDS: busPIRone HCL 5 MG TABLET PO SCH (09:03)
--- NOTE | 2019-09-10 12:51 | DS ---
(1) Acute appendicitis Diagnosis(s): She underwent an attempted laparoscopic, converted to open appendectomy for acute appendicitis. The procedure was converted due to extensive adhesions from previous pelvic surgery and ruptured ectopic . Chlorhexidine wipes were used preoperatively. She received pre-and postoperative IV Mefoxin. SCDs and subcu Lovenox were used for DVT VTE prophylaxis. Postoperatively her vital signs remained normal. She was slow to mobilize but did so with encouragement. She initially required IV medication for pain management however was able to transition to p.o. medication. She required supplemental oxygen due to her obstructive sleep apnea. Her hypertension was managed with her usual p.o. medication. She will be discharged home with written and verbal instructions. She is not to lift she is not to drive. She may shower and change her dressings as needed. A prescription for hydrocodone will be transmitted electronically. She has phone numbers to call for questions or concerns. She is to contact the office on Thursday to arrange a return appointment for 09/16/2019 Problem: Acute Qualifiers: Acute appendicitis type: with localized peritonitis Appendicitis gangrene presence: unspecified whether gangrene present Appendicitis perforation presence: without perforation Appendicitis abscess presence: without abscess Qualified Code(s): K35.30 - Acute appendicitis with localized peritonitis, without perforation or gangrene (2) Obstructive sleep apnea, adult Problem: Acute Procedures Performed: see notes below - Laparoscopic converted to open appendectomy Results and Findings: Lab Pending Results 09/08/19 15:50: WBC 14.1 H, RBC 4.51, Hgb 13.4, Hct 39.9, MCV 88.5, MCH 29.7, MCHC 33.6, RDW 13.1, Plt Count 292, MPV 9.0, Immature Gran % (Auto) 0.50 H, Immature Gran # (Auto) 0.07 H, Neutrophils % 72.9, Lymphocytes % 17.0 L, Monocytes % 8.7, Eosinophils % 0.6, Basophils % 0.3, Nucleated RBC % 0.0, Neutrophils # 10.3 H, Lymphocytes # 2.40, Monocytes # 1.2 H, Eosinophils # 0.1, Absolute Basophils 0.0 09/08/19 15:50: Sodium 137, Plasma Sodium 137, Potassium 3.7, Chloride 101, Carbon Dioxide 22.5 L, Anion Gap 17.2 H, BUN 14, Creatinine 0.90, Est GFR (Non- Af Amer) 65, BUN/Creatinine Ratio 15.6, Random Glucose 118 H, Calcium 8.5, Calcium Adj for Albumin 8.6, Total Bilirubin 0.9, AST 19, ALT 19, Alkaline Phosphatase 77, C-Reactive Prot, Quant 14.1 H, Total Protein 7.1, Albumin 3.5, Amylase 42, Lipase 65 L 09/08/19 15:55: Urine Color Dark yellow, Urine Appearance Clear, Urine pH 6.0, Ur Specific [place] 1.020, Urine Protein 15 H, Urine Glucose (UA) Negative, Urine Ketones Negative, Urine Blood Negative, Urine Nitrate Negative, Urine Bilirubin 1 H, Urine Ictotest Negative, Prot Sulfosalicylic Acd 1+, Urine Urobilinogen Normal, Ur Leukocyte Esterase 25 H, Urine RBC Trace, Urine WBC 5-10 H, Ur Epithelial Cells 5-10 H, Urine Bacteria 1+ H, Urine Culture Comments Culture to follow 09/08/19 22:53: Pathology Specimen Spec to path 09/10/19 07:18: WBC 9.8 D, RBC 3.48 L, Hgb 10.4 L, Hct 32.1 L, MCV 92.2, MCH 29.9, MCHC 32.4, RDW 13.4, Plt Count 228, MPV 9.0, Immature Gran % (Auto) 0.50 H, Immature Gran # (Auto) 0.05 H, Neutrophils % 65.1, Lymphocytes % 22.1, Monocytes % 10.5 H, Eosinophils % 1.5, Basophils % 0.3, Nucleated RBC % 0.0, Neutrophils # 6.4 H, Lymphocytes # 2.16, Monocytes # 1.0, Eosinophils # 0.2, Absolute Basophils 0.0 Discharge Location: Home Disposition: Home self-care Condition: Good Discharge Activity: No Lifting Discharge Diet: General/regular food Referrals: Francois Webb MD [Primary Care Provider] - Problem Oriented Discharge Instructions to Patient/Family: Open Appendectomy, Care After Additional Patient Instructions (free text): She is to contact the office [phone] to arrange an office appointment for 09/16/2019 Complete Home Medications List: Complete Home Medication List: Gemfibrozil [Lopid] 600 mg PO BID 10/15/16 nystatin 100,000 unit/gram topical cream 1 applic TP BID #30 g 11/23/17 meloxicam 15 mg tablet 15 mg PO DAILY #30 tab 12/29/17 amlodipine 5 mg tablet 5 mg PO DAILY #90 tab 03/10/18 clonidine HCl 0.1 mg tablet See Rx Instructions .ROUTE .COMPLEX #180 tablet 11/09/18 fluoxetine 40 mg capsule 40 mg PO BID PRN #180 cap 11/09/18 amitriptyline 25 mg tablet 25 mg PO HS PRN #90 tab 11/11/18 pseudoephedrine-guaifenesin ER 60 mg-600 mg tablet,extend release 12hr 1 tab PO BID PRN #10 tab 02/09/19 buspirone 10 mg tablet 10 mg PO BID #180 tab 04/14/19 alprazolam 0.25 mg tablet 0.25 mg PO ONCE PRN #30 tab 07/07/19 hydrocodone 5 mg-acetaminophen 325 mg tablet 1 tab PO DAILY PRN #30 tab 08/31/19 HYDROcodone/ACETAMINOPHEN [[place] 5-325] 2 ea PO Q6H PRN #30 tab 09/10/19
[2019-09-10 15:11] VITALS: BP 121/44
== END 2019-09-10 14:30 | disposition home or self-care (01) | DRG 343 ==
LOC: ER 15:20 → MS 15:20 → AMB 19:41 → MS 20:28 → AMB 20:30 → OBSVTOIN 22:33
PROVIDERS: ADMIT Surgery; ATTEND Surgery
CPT/HCPCS: 36415; 74019; 74020; 74177; 80053; 81001; 82150; 83690; 85025; 86140; 87086; 88304; 88888; 96374; 96375; 96376; 99285; J2405; Q9963; Q9967

== ENCOUNTER 2019-12-01 11:36 | Inpatient (IN) ==
[2019-12-01 12:03] LABS: INR 1.01 INR (0.92-1.08); Partial Thrombolplastin Time 26.6 Seconds (24-32)
[2019-12-01 12:05] LABS: Albumin * 3.9 gm/dl (3.4-5.0); BUN/Creatinine Ratio 23.4 (9.0-21.6); Bilirubin, Total 0.6 mg/dL (0.0-1.1); Ca. Corrected For Albumin 9.3 mg/dL (8.4-10.2); Calcium * 9.5 mg/dL (7.9-10.9); Carbon Dioxide 26.4 mmol/L (24-32.6); Potassium 3.4 mmol/L (3.4-4.6); Total Protein 8.2 gm/dL (6.2-8.2)
[2019-12-01 12:06] LABS: Hematocrit 43.1 % (37.0-47.0); Mean Cell Volume 89.4 fl (78-100); Mean Corpuscular Hgb Conc 32.5 g/dl (32-36); Mean Platelet Volume 9.1 fl (8-12.5); Neutrophil # 4.4 K/mm3 (1.3-6.0); Neutrophil % 53.5 % (42-75.0); Platelet Count 418 K/mm3 (150-450); Red Blood Count 4.82 M/mm3 (4.2-5.4); Red Cell Distribution Width 13.5 % (11.5-14.0); White Blood Count 8.2 K/mm3 (4.0-10.5)
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
[2019-12-01] MEDS ORDERED: ASPIRIN 81 MG TAB.CHEW PO ONE (12:43)
[2019-12-01] MEDS ORDERED: ACETAMINOPHEN 325 MG TABLET PO ONE (12:43)
[2019-12-01] MEDS ORDERED: ONDANSETRON HCL/PF 2 MG/ML VIAL IV ONE (12:51)
[2019-12-01] MEDS ORDERED: ONDANSETRON HCL/PF 2 MG/ML VIAL IV PRN (16:38)
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
[2019-12-01] MEDS: ACETAMINOPHEN 325 MG TABLET PO PRN ×2 (17:24→23:25)
[2019-12-01] MEDS: ROSUVASTATIN CALCIUM 20 MG TABLET PO SCH (17:24)
[2019-12-01] MEDS: PANTOPRAZOLE SODIUM 40 MG in NORMAL SALINE 100 ML IV SCH (17:29)
[2019-12-01] MEDS: ENOXAPARIN SODIUM 40 MG/0.4 ML SYRG SC SCH (18:40)
[2019-12-02] MEDS: HYDROcodone/ACETAMINOPHEN 1 EACH TABLET PO PRN ×3 (01:09→21:29)
[2019-12-02] MEDS: ROSUVASTATIN CALCIUM 20 MG TABLET PO SCH (08:27)
--- NOTE | 2019-12-02 09:14 | PN ---
Subjective - Date and Time Seen Date: 12/02/19 Time: 09:00 Subjective Narrative: Olivia is awake alert oriented x3 . She is complaining of headache 12/04. Still has peripheral vision cuts on the right eye. Objective - Review of Systems Generalized/Overall Review: Denies: Chills, Fever EENTM: Reports: Blurred Vision Respiratory: Denies: Cough, Shortness of Breath, Orthopnea Cardiac: Denies: Chest Pain, Edema, Palpitations Abdominal: Denies: Nausea, Vomiting, Abdominal Pain Genitourinary Symptoms: Denies: Urgency, Frequency Musculoskeletal Complaints: Reports: Joint Pain Neurological: Reports: Headache Skin: Denies: Lesions, Rash Misc: All systems neg except as marked - Vitals Vitals: Last Vital Signs Temp 37.4 C 12/02/19 06:55 Pulse 69 12/02/19 06:55 Resp 12 12/02/19 06:55 BP 141/57 12/02/19 06:55 Pulse Ox 97 12/02/19 06:55 - Abnormal Lab Findings Abnormal Lab Findings: Abnormal Lab Results 12/01/19 12/01/19 12/01/19 Range/Units 11:40 11:40 11:40 Immature Gran % (Auto) 0.90 H (0.001-0.429) % Immature Gran # (Auto) 0.07 H (0.000-0.0310) K/mm3 Eosinophils % 4.0 H (0.0-3.0) % ESR 37 H (0-15) mm/hr BUN/Creatinine Ratio 23.4 H (9.0-21.6) Random Glucose 129 H (70-110) mg/dL - Exam Constitutional: Present: Alert, Oriented x3, Cooperative ENT Exam: Present: hearing grossly normal Neck: Present: supple. 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 She is ambulating with physical therapy with the assistance of a walker. Her main neurological deficit is peripheral vision cuts. She also is complaining of headache behind her left eye 8/10. I did talk to the stroke team last night about her subtle mass effect with cytotoxic edema on her MRI and they did not recommend mannitol last night. They did recommend doing an MRA of the head and neck. I have ordered carotid ultrasound and echocardiogram with bubble study. I have moved her to telemetry and and she did not exhibit any arrhythmia like atrial fibrillation overnight. Her MRA will be pushed up to [facility] stroke team. Dr. Bernard called earlier this morning and he recommended that if the patient's headache is more than 5/10 to severe to give patient dexamethasone 2 mg 3 times daily or 3 mg twice daily. I have referred patient to PT/OT. She will likely stay over the weekend. Her blood pressures have been in the 140s to 150s and we will monitor that for 24 to 48 hours and start giving her blood pressure medications to keep it in the normal range after that. I will sign outpatient to the physician manager of production. - Problems/Diagnosis (1) CVA (cerebral vascular accident) Problem: Acute Qualifiers: CVA mechanism: unspecified Qualified Code(s): I63.9 - Cerebral infarction, unspecified Narrative: left occipital lobe and temporal lobe with subtle mass effect due to cytotoxic edema. (2) History of inflammatory bowel disease Problem: Chronic (3) Chronic pain syndrome Problem: Chronic
--- NOTE | 2019-12-02 11:58 | PN ---
Progess Note - Interim Date: 12/02/19 Time: 11:57 Narrative: 12/02/19 11:57 Her Echo showed Ef [id number], positive diastolic dysfunction, moderate LVH, mils AR/trace TR, RVSP 41 mm Hg and a negative bubble study. CUS/ MRA pending.
[2019-12-02] MEDS: DEXAMETHASONE 2 MG TABLET PO SCH ×2 (13:06→17:11)
[2019-12-02] MEDS: NORMAL SALINE 1,000 ML IV PRN ×2 (13:06→23:17)
[2019-12-02] MEDS: ACETAMINOPHEN 325 MG TABLET PO PRN (13:07)
[2019-12-02] MEDS: PANTOPRAZOLE SODIUM 40 MG in NORMAL SALINE 100 ML IV SCH (17:11)
[2019-12-02] MEDS: ENOXAPARIN SODIUM 40 MG/0.4 ML SYRG SC SCH (17:12)
[2019-12-03] MEDS: HYDROcodone/ACETAMINOPHEN 1 EACH TABLET PO PRN (04:15)
[2019-12-03 08:04] LABS: Hematocrit 34.6 % (37.0-47.0); Hemoglobin 11.2 gm/dL (12.5-16.0); Mean Cell Volume 89.4 fl (78-100); Mean Corpuscular Hemoglobin 28.9 pg (27-31); Mean Corpuscular Hgb Conc 32.4 g/dl (32-36); Mean Platelet Volume 9.1 fl (8-12.5); Neutrophil # 8.1 K/mm3 (1.3-6.0); Neutrophil % 76.7 % (42-75.0); Platelet Count 313 K/mm3 (150-450); Red Blood Count 3.87 M/mm3 (4.2-5.4); Red Cell Distribution Width 13.2 % (11.5-14.0); White Blood Count 10.5 K/mm3 (4.0-10.5)
[2019-12-03] MEDS: ROSUVASTATIN CALCIUM 20 MG TABLET PO SCH (08:14)
[2019-12-03] MEDS: DEXAMETHASONE 2 MG TABLET PO SCH (08:14)
[2019-12-03 08:18] LABS: Anion Gap 11.9 mmol/L (6.8-13.8); BUN/Creatinine Ratio 11.6 (9.0-21.6); Calcium * 8.4 mg/dL (7.9-10.9); Carbon Dioxide 27.6 mmol/L (24-32.6); Chol/HDL Risk Ratio 2.6 mg/dL (3.3-4.4); Estimated Creat Clear 39.3; Potassium 3.5 mmol/L (3.4-4.6)
[2019-12-03] MEDS: NORMAL SALINE 1,000 ML IV PRN ×2 (09:21→20:18)
[2019-12-03] MEDS ORDERED: HYDROcodone/ACETAMINOPHEN 1 EACH TABLET PO PRN (09:25)
--- NOTE | 2019-12-03 09:59 | PN ---
Subjective - Date and Time Seen Date: 12/03/19 Subjective Narrative: On service note: Olivia Shannon is a 79-year-old female patient of Dr. Butler. She was admitted through the emergency room following an apparent stroke and has a right lateral hemianopsia as a result. The CT scan in the ER was nonrevealing. She had an ultrasound of her carotid arteries which showed mild to moderate ASCVD of the internal carotid arteries right greater than left but no hemodynamically significant stenosis. This was followed with an MRI which showed a subtle mass-effect and a recent cortical infarct of the posterior medial left occipital and left temporal lobes. There is also small vessel age- related disease which had increased mildly from 2018. This was then followed with an MRA of the brain showing occlusion of the left posterior cerebral artery and an MRA of the neck which showed a greater than 80% stenosis of the left ICA. Obviously the ultrasound and the MRA of the neck findings are not consistent. She has had some difficulty with speech and naming things. This morning her speech is clear and she is fully conversational. She continues to have loss of vision to the right side. Her lab this morning is essentially normal with a white count of 10,500, hemoglobin is 11.2 g, hematocrit 34.6%, chemistries are normal with a blood sugar of 130. A lipid profile was performed and is excellent. She is having some coordination problems with her hands and knocking things onto the floor at times. This makes her anxious which just aggravates the problem. Speech therapy was added yesterday to the PT and OT orders that were already in place. Objective - Review of Systems Generalized/Overall Review: Reports: No Symptoms Reported EENTM: Reports: Other - Right lateral hemianopsia Respiratory: Reports: No Symptoms Reported Cardiac: Reports: No Symptoms Reported Abdominal: Reports: No Symptoms Reported Genitourinary Symptoms: Reports: No Symptoms Reported Musculoskeletal Complaints: Reports: No Symptoms Reported Neurological: Reports: Anxiety, Other - Jerking motions of the arms and hands. Depth perception is abnormal. Skin: Reports: No Symptoms Reported Endocrine: Reports: No Symptoms Reported - Vitals Vitals: Last Vital Signs Temp 36.9 C 12/03/19 06:24 Pulse 75 12/03/19 06:24 Resp 20 12/03/19 06:24 BP 141/52 12/03/19 02:45 Pulse Ox 93 12/03/19 06:24 - Abnormal Lab Findings Abnormal Lab Findings: Abnormal Lab Results 12/03/19 12/03/19 Range/Units 07:59 07:59 RBC 3.87 L (4.2-5.4) M/mm3 Hgb 11.2 L (12.5-16.0) gm/dL Hct 34.6 L (37.0-47.0) % Immature Gran % (Auto) 1.20 H (0.001-0.429) % Immature Gran # (Auto) 0.13 H (0.000-0.0310) K/mm3 Neutrophils % 76.7 H (42-75.0) % Lymphocytes % 15.6 L (20-51) % Neutrophils # 8.1 H (1.3-6.0) K/mm3 Random Glucose 130 H (70-110) mg/dL LDL Cholesterol 40 L (70-130) mg/dL Cholesterol/HDL Ratio 2.6 L (3.3-4.4) mg/dL - EKG/Xray Findings EKG: NSR EKG read: Reviewed by me XRAY: CT brain, ultrasound carotids, MRI, MRA brain, MRA neck all reviewed by me. Interpretation: Reviewed by me - Exam Constitutional: Present: Alert, Oriented x3, Cooperative, Well developed, Well nourished, Mild distress, Lethargic, Elderly ENT Exam: Present: hearing grossly normal, pharynx normal, TMs normal, other - Right scleral hemorrhage Neck: Present: non-tender, limited range of motion Breasts: Present: Exam deferred Respiratory: Present: chest non-tender, lungs clear, normal breath sounds, no respiratory distress, no accessory muscle use Cardiovascular/Chest: Present: normal peripheral pulses, regular rate, rhythm, no chest tenderness, no edema, no gallop, no JVD, no murmur, no rub Abdomen: Present: Normal bowel sounds, soft, nontender, nondistended, no rebound tenderness, no hepatospenomegaly, no masses /Rectal: Present: Exam deferred Extremity: Present: normal range of motion, non-tender, normal inspection, no pedal edema, no calf tenderness, normal capillary refill Skin Exam: Present: normal color, warm/dry, no cyanosis Lymphatic: Present: no adenopathy Neurologic: Present: alert, oriented x 3, abnormal cerebellar tests, abnormal nuclear worker technician II-XII, abnormal gait, other - Motor movements of the upper extremities are not smooth. They are rather jerky and she inadvertently knocks things to the floor off of her bedside table.. Absent: aphasia, EOM palsy, facial droop, motor weakness, sensory deficit, depressed affect, dizzy/light-headedness Appearance: Present: appropriate appearance, appropriate insight, neat, impaired insight, impaired recent memory - Mild Eye contact: Present: cooperative, good eye contact, normal speech Thoughts: Present: normal thought pattern, no apparent hallucination Assessment/Plan Plan Narrative: 1. Continue physical, occupational, and speech therapy 2. I reviewed her imaging studies since admission with her this morning 3. Morning lab is ordered 4. I reassured her that the scleral hemorrhage was not of a concern and she expressed understanding. 5. Continue current medical therapy as established by Dr. Butler - Problems/Diagnosis (1) CVA (cerebral vascular accident) Problem: Acute Qualifiers: CVA mechanism: unspecified Qualified Code(s): I63.9 - Cerebral infarction, unspecified (2) Occlusion of left posterior cerebral artery Problem: Acute (3) Stenosis of left internal carotid artery Problem: Acute
[2019-12-03] MEDS: DEXAMETHASONE 0.5 MG TABLET PO SCH ×2 (13:29→16:43)
[2019-12-03] MEDS: ENOXAPARIN SODIUM 40 MG/0.4 ML SYRG SC SCH (16:43)
[2019-12-03] MEDS: PANTOPRAZOLE SODIUM 40 MG in NORMAL SALINE 100 ML IV SCH (16:44)
[2019-12-03] MEDS: busPIRone HCL 5 MG TABLET PO SCH (20:19)
[2019-12-04] MEDS: ACETAMINOPHEN 325 MG TABLET PO PRN ×2 (02:56→21:02)
[2019-12-04 06:32] LABS: Hematocrit 34.5 % (37.0-47.0); Hemoglobin 11.6 gm/dL (12.5-16.0); Mean Cell Volume 88.7 fl (78-100); Mean Corpuscular Hemoglobin 29.8 pg (27-31); Mean Corpuscular Hgb Conc 33.6 g/dl (32-36); Mean Platelet Volume 9.3 fl (8-12.5); Neutrophil # 9.1 K/mm3 (1.3-6.0); Neutrophil % 70.7 % (42-75.0); Platelet Count 368 K/mm3 (150-450); Red Blood Count 3.89 M/mm3 (4.2-5.4); Red Cell Distribution Width 13.2 % (11.5-14.0); White Blood Count 12.8 K/mm3 (4.0-10.5)
[2019-12-04 06:49] LABS: Albumin * 3.3 gm/dl (3.4-5.0); Anion Gap 10.4 mmol/L (6.8-13.8); Bilirubin, Total 0.2 mg/dL (0.0-1.1); Ca. Corrected For Albumin 8.7 mg/dL (8.4-10.2); Calcium * 8.5 mg/dL (7.9-10.9); Carbon Dioxide 28.5 mmol/L (24-32.6); Potassium 2.9 mmol/L (3.4-4.6); Total Protein 6.8 gm/dL (6.2-8.2)
[2019-12-04] MEDS: NORMAL SALINE 1,000 ML IV PRN (07:15)
[2019-12-04] MEDS: ROSUVASTATIN CALCIUM 20 MG TABLET PO SCH (08:47)
[2019-12-04] MEDS: busPIRone HCL 5 MG TABLET PO SCH ×2 (08:47→21:02)
[2019-12-04] MEDS: DEXAMETHASONE 0.5 MG TABLET PO SCH ×3 (08:47→16:47)
--- NOTE | 2019-12-04 11:00 | PN ---
Subjective - Date and Time Seen Date: 12/04/19 Time: 08:15 Subjective Narrative: Olivia seems to be doing a little better this morning. She is sitting on the edge of the bed unassisted and fully conversant. She does not remember much of the conversation I had with her yesterday about her imaging findings and asked many of the same questions she did yesterday. I had to tell her again that she has had a stroke. She is having less jerky motions. Her depth perception is off because of mostly unilateral vision now. She has no complaints or requests today. Vital signs: Pulse is 55, BP is 170/52, respiratory 16 and unlabored, O2 sat is 96%. Lab: Total protein is 6.8 and is down from 8.2 and the albumin is 3.3 and down from 3.9. WBCs are 12,800 with an 80% neutrophil differential. This is the first time the white count is been elevated and is up from 10,500 yesterday. The hemoglobin is 11.6 g and hematocrit 34.5%. Sodium is 142, potassium is low at 2.9 and down from 3.5 yesterday, chloride is 106 and CO2 is 28.5. The EGFR is 80 and the glucose is 111 which is down from 130 yesterday. Objective - Review of Systems Generalized/Overall Review: Reports: Weakness EENTM: Reports: No Symptoms Reported Respiratory: Reports: No Symptoms Reported Cardiac: Reports: No Symptoms Reported Abdominal: Reports: No Symptoms Reported Genitourinary Symptoms: Reports: No Symptoms Reported Musculoskeletal Complaints: Reports: No Symptoms Reported Neurological: Reports: Other - Some improvement in motor coordination today. Her depth perception is still off due to monocular vision. She states her headaches are now gone. She is having some short-term memory issues. Skin: Reports: No Symptoms Reported Endocrine: Reports: No Symptoms Reported Misc: All systems neg except as marked - Vitals Vitals: Last Vital Signs Temp 37.1 C 12/04/19 07:00 Pulse 55 L 12/04/19 07:00 Resp 16 12/04/19 07:00 BP 170/52 H 12/04/19 07:00 Pulse Ox 96 12/04/19 07:00 - Abnormal Lab Findings Abnormal Lab Findings: Abnormal Lab Results 12/04/19 12/04/19 Range/Units 06:10 06:10 WBC 12.8 H D (4.0-10.5) K/mm3 RBC 3.89 L (4.2-5.4) M/mm3 Hgb 11.6 L (12.5-16.0) gm/dL Hct 34.5 L (37.0-47.0) % Immature Gran % (Auto) 0.80 H (0.001-0.429) % Immature Gran # (Auto) 0.10 H (0.000-0.0310) K/mm3 Neutrophils # 9.1 H (1.3-6.0) K/mm3 Potassium 2.9 L (3.4-4.6) mmol/L Random Glucose 111 H (70-110) mg/dL ALT 16 L (19-67) U/L Albumin 3.3 L (3.4-5.0) gm/dl - EKG/Xray Findings EKG read: Reviewed by me Interpretation: Reviewed by me - None new since yesterday - Exam Constitutional: Present: Alert, Oriented x3, Cooperative, Well developed, Well nourished, No distress ENT Exam: Present: normal ENT inspection, hearing grossly normal, pharynx normal, TMs normal Neck: Present: non-tender, limited range of motion Breasts: Present: Exam deferred Respiratory: Present: chest non-tender, lungs clear, normal breath sounds, no respiratory distress, no accessory muscle use Cardiovascular/Chest: Present: normal peripheral pulses, regular rate, rhythm, no chest tenderness, no edema, no gallop, no JVD, no murmur, no rub Abdomen: Present: Normal bowel sounds, soft, nontender, nondistended, no rebound tenderness, no hepatospenomegaly, no masses, obese /Rectal: Present: Exam deferred Extremity: Present: normal range of motion, non-tender, normal inspection, no pedal edema, no calf tenderness, normal capillary refill Skin Exam: Present: normal color, warm/dry, no cyanosis Lymphatic: Present: no adenopathy Neurologic: Present: 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 Add potassium 20 mEq 1 p.o. daily 2. Recheck lab tomorrow morning 3. Dr. Butler to assume management tomorrow morning 4. PT OT and speech to evaluate her tomorrow morning - Problems/Diagnosis (1) CVA (cerebral vascular accident) Problem: Acute Qualifiers: CVA mechanism: unspecified Qualified Code(s): I63.9 - Cerebral infarction, unspecified (2) Occlusion of left posterior cerebral artery Problem: Acute (3) Stenosis of left internal carotid artery Problem: Acute (4) Hypokalemia Problem: Acute
[2019-12-04] MEDS ORDERED: amLODIPine BESYLATE 5 MG TABLET PO SCH (11:30)
[2019-12-04] MEDS: POTASSIUM CHLORIDE 20 MEQ TABLET.SA PO SCH (11:41)
[2019-12-04] MEDS: ENOXAPARIN SODIUM 40 MG/0.4 ML SYRG SC SCH (16:47)
[2019-12-04] MEDS: PANTOPRAZOLE SODIUM 40 MG in NORMAL SALINE 100 ML IV SCH (16:47)
[2019-12-05 06:32] LABS: Hematocrit 42.3 % (37.0-47.0); Mean Cell Volume 88.9 fl (78-100); Mean Corpuscular Hemoglobin 29.4 pg (27-31); Mean Corpuscular Hgb Conc 33.1 g/dl (32-36); Neutrophil # 9.3 K/mm3 (1.3-6.0); Neutrophil % 69.2 % (42-75.0); Platelet Count 447 K/mm3 (150-450); Red Blood Count 4.76 M/mm3 (4.2-5.4); Red Cell Distribution Width 13.2 % (11.5-14.0); White Blood Count 13.4 K/mm3 (4.0-10.5)
[2019-12-05 06:51] LABS: Albumin * 3.7 gm/dl (3.4-5.0); Anion Gap 13.1 mmol/L (6.8-13.8); BUN/Creatinine Ratio 15.7 (9.0-21.6); Bilirubin, Total 0.3 mg/dL (0.0-1.1); Ca. Corrected For Albumin 8.7 mg/dL (8.4-10.2); Calcium * 8.8 mg/dL (7.9-10.9); Carbon Dioxide 28.2 mmol/L (24-32.6); Potassium 3.3 mmol/L (3.4-4.6); Total Protein 7.6 gm/dL (6.2-8.2)
[2019-12-05] MEDS: ACETAMINOPHEN 325 MG TABLET PO PRN (07:15)
[2019-12-05] MEDS ORDERED: LISINOPRIL 20 MG TABLET PO SCH (09:00)
[2019-12-05] MEDS: busPIRone HCL 5 MG TABLET PO SCH (09:17)
[2019-12-05] MEDS: ROSUVASTATIN CALCIUM 20 MG TABLET PO SCH (09:17)
[2019-12-05] MEDS: POTASSIUM CHLORIDE 20 MEQ TABLET.SA PO SCH (09:20)
--- NOTE | 2019-12-05 11:53 | DS ---
(1) CVA (cerebral vascular accident) Problem: Acute Qualifiers: CVA mechanism: occlusion Precerebral and cerebral artery: posterior cerebral artery Laterality of affected vessel: left Qualified Code(s): I63.532 - Cerebral infarction due to unspecified occlusion or stenosis of left posterior cerebral artery (2) Carotid artery stenosis Diagnosis(s): 80 % Problem: Acute Qualifiers: Laterality: left Qualified Code(s): I65.22 - Occlusion and stenosis of left carotid artery (3) History of inflammatory bowel disease Problem: Chronic (4) Chronic pain syndrome Problem: Chronic Date of Discharge:: 12/05/19 Hospital Course: Olivia Shannon is a 79-year-old white female patient of Dr. Webb with past medical history significant for chronic pain syndrome, fibromyalgia, obstructive sleep apnea, history of inflammatory bowel disease who was admitted today on 12/01/2019 for a possible stroke. The patient was fine last night when she went to bed. She woke up this morning with difficulty of walking. The patient complained of having lost her peripheral vision from both sides. This is associated with a throbbing headache behind her left eye. She denied any nausea vomiting. She is not on any blood thinners. She recently underwent bowel resection and did not have any complication post operatively. She does have a history of TIA in the past. The brought the daughter was concerned and brought her for possible stroke. The emergency room when she came in her blood pressure was 155/89, respiratory rate of 16, temperature 35.9, heart rate of 97, oxygen saturation 97% on room air. Her CBC and CMP were essentially within normal limits. ESR was 37. Chest x-ray showed no acute cardiopulmonary findings. Head CT scan showed no acute intracranial process or intracranial mass or intracranial hemorrhage. There was an oval area of low attenuation in the deep white matter of the left frontal lobe thought to reflect sequela of subacute to chronic small vascular process. She was given a baby aspirin. She was referred to PT/OT. She had left vision loss and unsteady gait/ balance. An MRI was ordered and it showed MRI was ordered and it showed findings of recent cortical infarction involving the posterior medial left occipital and medial left temporal lobes with very subtle mass-effect associated with Cytotoxic edema. No other areas of recent cortical or lacunar infarction. Moderate small vessel ischemic change noted elsewhere in the cerebral white matter and mildly progressed from 2018 exam. No mass or abnormal areas of enhancement. Because of her ALTAMIRANO behind her left eye I talked with stroke team in [facility] and they did not recommend mannitol. Her CUS did not show hemodynamically siginificant stenosis. Her Echo did not show a positive bubble study. Her telemetry did not show AFib. Dr. Bernard recommeneded Decadron for her ALTAMIRANO. An MRA of the head and Neck showed a 80 % proximal stenosis of LICA, and occlusion of left posterior cerebral artery. I talked to Dr. Bernard again to see if vascular consult is needed and he wants see the patient in 2 weeks and refer him to Dr. Chacon as an outpatient. Will discharge her Amlodipine. Olivia is homebound due to her recent acute CVA with unsteady gait. She will need long term for management and monitoring of her blood pressure as she is not being started on an antihypertensive. She will also need physical therapy, Occupational Therapy, and speech therapy for her recent acute stroke to improve her unsteady gait and increase her activities of daily living. The need for home health care skilled services is directly related to the time spent [id number] with the person. Procedures Performed: none Results and Findings: Lab Pending Results 12/01/19 11:40: WBC 8.2, RBC 4.82, Hgb 14.0, Hct 43.1, MCV 89.4, MCH 29.0, MCHC 32.5, RDW 13.5, Plt Count 418, MPV 9.1, Immature Gran % (Auto) 0.90 H, Immature Gran # (Auto) 0.07 H, Neutrophils % 53.5, Lymphocytes % 32.9, Monocytes % 7.8, Eosinophils % 4.0 H, Basophils % 0.9, Nucleated RBC % 0.0, Neutrophils # 4.4, Lymphocytes # 2.69, Monocytes # 0.6, Eosinophils # 0.3, Absolute Basophils 0.1 12/01/19 11:40: ESR 37 H 12/01/19 11:40: PT 10.0, INR (Anticoag Therapy) 1.01, PTT (Mc[place]osh) 26.6 12/01/19 11:40: Sodium 140, Plasma Sodium 140, Potassium 3.4, Chloride 104, Carbon Dioxide 26.4, Anion Gap 13.0, BUN 18, Creatinine 0.77, Est GFR (Non-Af Amer) 77, BUN/Creatinine Ratio 23.4 H, Random Glucose 129 H, Calcium 9.5, Calcium Adj for Albumin 9.3, Total Bilirubin 0.6, AST 21, ALT 23, Alkaline Phosphatase 128, Total Protein 8.2, Albumin 3.9 12/03/19 07:59: WBC 10.5 D, RBC 3.87 L, Hgb 11.2 L, Hct 34.6 L, MCV 89.4, MCH 28.9, MCHC 32.4, RDW 13.2, Plt Count 313, MPV 9.1, Immature Gran % (Auto) 1.20 H, Immature Gran # (Auto) 0.13 H, Neutrophils % 76.7 H, Lymphocytes % 15.6 L, Monocytes % 6.1, Eosinophils % 0.1, Basophils % 0.3, Nucleated RBC % 0.0, Neutrophils # 8.1 H, Lymphocytes # 1.64, Monocytes # 0.6, Eosinophils # 0.0, Absolute Basophils 0.0 12/03/19 07:59: Sodium 142, Plasma Sodium 142, Potassium 3.5, Chloride 106, Carbon Dioxide 27.6, Anion Gap 11.9, BUN 10, Creatinine 0.86, Est GFR (Non-Af Amer) 68, BUN/Creatinine Ratio 11.6, Random Glucose 130 H, Calcium 8.4, Triglycerides 135, Cholesterol 107, LDL Cholesterol 40 L, VLDL Cholesterol 27, HDL Cholesterol 40, Cholesterol/HDL Ratio 2.6 L 12/04/19 06:10: WBC 12.8 H D, RBC 3.89 L, Hgb 11.6 L, Hct 34.5 L, MCV 88.7, MCH 29.8, MCHC 33.6, RDW 13.2, Plt Count 368, MPV 9.3, Immature Gran % (Auto) 0.80 H, Immature Gran # (Auto) 0.10 H, Neutrophils % 70.7, Lymphocytes % 21.4, Monocytes % 6.9, Eosinophils % 0.0, Basophils % 0.2, Nucleated RBC % 0.0, Neutrophils # 9.1 H, Lymphocytes # 2.74, Monocytes # 0.9, Eosinophils # 0.0, Absolute Basophils 0.0 12/04/19 06:10: Sodium 142, Plasma Sodium 142, Potassium 2.9 L, Chloride 106, Carbon Dioxide 28.5, Anion Gap 10.4, BUN 12, Creatinine 0.75, Est GFR (Non-Af Amer) 80, BUN/Creatinine Ratio 16.0, Random Glucose 111 H, Calcium 8.5, Calcium Adj for Albumin 8.7, Total Bilirubin 0.2, AST 14, ALT 16 L, Alkaline Phosphatase 83, Total Protein 6.8, Albumin 3.3 L 12/05/19 06:16: WBC 13.4 H, RBC 4.76, Hgb 14.0, Hct 42.3, MCV 88.9, MCH 29.4, MCHC 33.1, RDW 13.2, Plt Count 447, MPV 9.0, Immature Gran % (Auto) 1.30 H, Immature Gran # (Auto) 0.18 H, Neutrophils % 69.2, Lymphocytes % 23.1, Monocytes % 6.0, Eosinophils % 0.0, Basophils % 0.4, Nucleated RBC % 0.0, Neutrophils # 9.3 H, Lymphocytes # 3.09, Monocytes # 0.8, Eosinophils # 0.0, Absolute Basophils 0.1 12/05/19 06:16: Sodium 141, Plasma Sodium 141, Potassium 3.3 L, Chloride 103, Carbon Dioxide 28.2, Anion Gap 13.1, BUN 14, Creatinine 0.89, Est GFR (Non-Af Amer) 65, BUN/Creatinine Ratio 15.7, Random Glucose 114 H, Calcium 8.8, Calcium Adj for Albumin 8.7, Total Bilirubin 0.3, AST 13, ALT 15 L, Alkaline Phosphatase 99, Total Protein 7.6, Albumin 3.7 Discharge Location: Home Disposition: [facility] Home Health Condition: Stable Discharge Activity: Activity as tolerated Discharge Diet: Low salt Referrals: Francois Webb MD [Primary Care Provider] - Additional Patient Instructions (free text): Follow up with PCP in 1 week. Please make an appointment with Dr. Bernard and Dr. Chacon. Prescriptions (Any new or edited meds): Amlodipine Besylate 10 mg PO DAILY #30 tab Transmission Status: Received by [facility] Aspirin [Aspirin EC] 81 mg PO DAILY #30 tablet.dr Transmission Status: Received by [facility] Rosuvastatin Calcium [Crestor] 20 mg PO DAILY #30 tab Transmission Status: Received by [facility] Acetaminophen [Tylenol] 650 mg PO Q6H PRN #30 tab PRN Reason: Mild Pain (Pain Scale 1-3) Transmission Status: Received by [facility] Complete Home Medications List: Complete Home Medication List: hydrocodone 5 mg-acetaminophen 325 mg tablet 1 tab PO DAILY PRN #30 tab 08/31/19 HYDROcodone/ACETAMINOPHEN [[place] 5-325] 2 ea PO Q6H PRN #30 tab 09/10/19 busPIRone HCL [Buspar] 10 mg PO BID 12/01/19 Acetaminophen [Tylenol] 650 mg PO Q6H PRN #30 tab 12/05/19 Amlodipine Besylate 10 mg PO DAILY #30 tab 12/05/19 Aspirin [Aspirin EC] 81 mg PO DAILY #30 tablet. 12/05/19 Rosuvastatin Calcium [Crestor] 20 mg PO DAILY #30 tab 12/05/19 Forms: Patient Portal Registration
[2019-12-05 14:25] VITALS: BP 158/61
--- NOTE | 2019-12-07 14:41 | ECHO ---
This report is available in the EMR
== END 2019-12-05 14:28 | disposition home health service (06) | DRG 64 ==
LOC: MS 11:36 → ER 11:36 → MS 13:26
PROVIDERS: ADMIT Internal Medicine; ATTEND Internal Medicine
CPT/HCPCS: 36415; 70450; 70544; 70549; 70553; 71010; 71045; 80048; 80053; 80061; 85025; 85610; 85652; 85730; 93005; 93306; 93880; 96125; 96374; 97110; 97116; 97161; 97165; 99285; A9576; J2405